=== PATIENT | female | born 1960 | race Caucasian/White ===

== ENCOUNTER 2024-02-25 15:32 | Emergency (ER) | payer BC, SELFPAY ==
[2024-02-25 15:47] VITALS: BP 135/94
[2024-02-25 16:09] LABS: % Basophils 0.8 % (0-2); % Eosinophils 1.3 % (0-6); % Immature Granulocytes 0.3 % (0-0.5); % Lymphocytes 35.3 % (20.5-51.1); % Monocytes 7.3 % (1.7-9.3); Absolute Basophils 0.1 10^3/uL (0-0.2); Absolute Eosinophils 0.1 10^3/uL (0-0.7); Absolute Lymphocytes 2.2 10^3/uL (1.2-3.4); Absolute Monocytes 0.5 10^3/uL (0.1-0.6); Absolute Neutrophils 3.4 10^3/uL (1.4-6.5); Hematocrit 42.3 % (37.0-47.0); Hemoglobin 14.2 g/dL (12.0-16.0); Mean Corp Hgb Conc. 33.6 g/dL (33.0-37.0); Mean Corpuscular Hgb 32.3 pg (27.0-31.0); Mean Corpuscular Volume 96.1 fL (81.0-99.0); Mean Platelet Volume 9.8 fL (7.4-10.4); Nucleated Red Blood Cells % 0 %; Platelet Count 448 10^3/uL (130-400); Red Cell Dist. Width 14.1 % (11.5-14.5); White Blood Cell Count 6.2 10^3/uL (4.8-10.8)
[2024-02-25 16:30] LABS: ALT (SGPT) 28 U/L (0-35); AST (SGOT) 28 U/L (14-36); Albumin 4.4 g/dl (3.5-5.0); Alkaline Phosphatase 92 U/L (38-126); Blood Urea Nitrogen 10 mg/dl (7-17); Calcium 9.7 mg/dl (8.4-10.2); Carbon Dioxide 23 mmol/L (22-30); Chloride 103 mmol/L (98-107); Glucose 99 mg/dl (70-99); Lipase 98 U/L (23-300); Potassium 4.5 mmol/L (3.5-5.1); Sodium 131 mmol/L (135-145); Total Bilirubin 0.4 mg/dl (0.2-1.3); eGFR > 60.00
[2024-02-25 16:35] LABS: Troponin I < 0.012 ng/ml
[2024-02-25] MEDS: BENTYL 20 MG PO (20:04)
--- NOTE | 2024-02-25 21:07 | ED.GENMED ---
History of Present Illness
General
Chief Complaint: Abdominal Pain
Source: patient
Exam Limitations: none
Time Seen by Provider: 02/25/24 19:29
Nursing documentation reviewed up to this point in time: agreed with
Travel History
Have you had any contact with someone who has COVID-19?: No
Do you have any symptoms of coronavirus? Fever > 100 degrees, chills, cough, shortness of breath, sore throat, loss of taste or smell, muscle aches, or headache?: No
History of Present Illness
History of Present Illness:
Patient to ED with multiple complaints. States she has not been feeling well for the past week. Report intermittent stomach ache, intermittent chest pain, intermittent neck and arm pains. States she had a fever for the first 2 days, none since.
Denies any vomiting. Reports occasional diarrhea. Denies SOB or cough. Brought self to ED for eval.
Past History
Past History
ED Past Medical History: CAD (normal cath, trop 0.2), Hypercholesterolemia, [place] and Other (Asthma, GERD, depression); Negative HTN or IDDM
ED Past Surgical History: Other
Social History
Tobacco: Non-smoker
Alcohol: None
Drug: None
Personal:
Living: with family
Employment: Employed
Family History
Family History: Negative Diabetes, Hypertension or CAD
Review of Systems
Review of Systems
Allergies reviewed?: Yes
All Other Systems: ROS reviewed and negative except as documented in HPI and ROS
Constitutional: Reports fever (first 2 days of illnewss)
Respiratory: Reports no symptoms
Cardiac: Reports no symptoms
ABD/GI: Reports abdominal pain (intermittent) and diarrhea (intermittent)
: Reports no symptoms
Musculoskeletal: Reports no symptoms
Skin: Reports no symptoms
Neurological: Reports no symptoms
Psychiatric: Reports no symptoms
Phy Exam
General Physical Exam
General Presentation: well appearing and no apparent distress
General age: appears stated age
General Skin: warm and dry
General Habitus: normal
General Mental: alert
Cardiovascular Exam
Cardiovascular Exam: regular rate/rhythm and no edema
Pulmonary Exam
Pulmonary Exam: lungs clear, no respiratory distress, no rales, chest non tender, no crackles, no rhonchi, no stridor, no wheezing and no cough
Gastrointestinal Exam
Gastrointestinal Exam: normal bowel sounds, non tender, soft, no organomegaly, no pulsatile mass, non distended and no cva tenderness
Musculoskeletal Exam
Musculoskeletal Exam: full ROM and neuro vasc intact
Skin Exam
Skin Exam: normal color, warm/dry and no rash
Psychiatric Exam
Psychiatric Exam: normal mood/affect
Course
Orders/Labs/Results
Orders:
Orders
02/25/24 15:51
EKG [Electrocardiogram (*1)] Urgent
Reason for Study: Abdominal Pain
EKG- Treatment ONCE
02/25/24 15:55
Complete Blood Count/With Diff Urgent
Comprehensive Metabolic Panel Urgent
Lipase Urgent
Troponin I Urgent
02/25/24 19:54
Dicyclomine [Bentyl] 20 mg PO NOW STA
Abnormal Lab Results
02/25/24
15:55
MCH 32.3 H pg
(27.0-31.0)
Plt Count 448 H 10^3/uL
(130-400)
Sodium 131 L mmol/L
(135-145)
02/25/24 15:55
02/25/24 15:55
Vital Signs
Initial and Last Documented VS:
Initial Vital Signs
Temp Pulse Resp BP Pulse Ox
98.4 F 82 16 135/94 98
02/25/24 15:47 02/25/24 15:47 02/25/24 15:47 02/25/24 15:47 02/25/24 15:47
Last Documented Vital Signs
Temp Pulse Resp BP Pulse Ox
98.4 F 82 16 135/94 98
02/25/24 15:47 02/25/24 15:47 02/25/24 15:47 02/25/24 15:47 02/25/24 15:47
*Pulse Oximetry
Patient hypoxic: no
*EKG
Interpretation: normal
Rate: normal
Rhythm: sinus
*Critical Care Note
Total Time (30-74mins, 75-104mins- exclusive of procedures): Not Applicable
ED Attending Note
-
Portions of this chart may have been created with voice recognition software.� Occasional wrong word or��sound alike� substitutions may have occurred due to the inherent limitations of voice recognition software.
Discharge Plan
Departure
Patient Disposition: Home (Routine Discharge)
Date of Disposition: 02/25/24
Time of Disposition: 19:56
Patient with high blood pressure during this ER visit?: No
Condition: Good
Covid-19: Not Applicable
Discharge Problem:
Abdominal pain
Instructions: Abdominal Pain
Prescriptions:
New
dicyclomine 20 mg tablet
20 mg PO BID Qty: 14 0RF
No Action
Veronica
180 mg PO DAILY
loratadine-pseudoephedrine [Claritin-D 24 Hour] 1 EACH tablet extended release 24 hr
10 mg PO PRN (Reason: allergies)
azelastine 137 MCG/SPRAY aerosol,spray
1 spray intranasal BID PRN (Reason: congestion)
clopidogrel 75 MG tablet
75 mg PO DAILY
famotidine 40 MG tablet
40 mg PO PRN PRN (Reason: gerd)
Patient Comments:
20 or 40 mg
promethazine 25 MG tablet
25 mg PO DAILY
pravastatin 20 MG tablet
20 mg PO DAILY
bupropion HCl [Wellbutrin XL] 150 MG tablet extended release 24 hr
150 mg PO BID
guaifenesin [Mucus Relief ER] 600 MG tablet extended release 12hr
600 mg PO DAILY
escitalopram oxalate 10 MG tablet
10 mg PO DAILY
oxymetazoline [Afrin Sinus (oxymetazoline)] 0.05 % spray,non-aerosol
0 sprays intranasal PRN PRN (Reason: hayfever)
mometasone [Nasonex] 17 GRAM spray,non-aerosol
1 spray intranasal BID PRN (Reason: hayfever)
levalbuterol tartrate 45 MCG HFA aerosol inhaler
1 puff inhalation R Q4HPRN PRN (Reason: sob)
Asmanex
PRN (Reason: wheezing)
hydroxyurea 500 MG capsule
500 mg PO BID
fluticasone propion-salmeterol [Advair Diskus] 1 DISK blister with device
1 puff inhalation PRN PRN (Reason: asthma)
aspirin 81 MG tablet,delayed release (DR/EC)
81 mg PO DAILY
pantoprazole 40 MG tablet,delayed release (DR/EC)
40 mg PO DAILY
Ipratropium [place]
2 inhalation BID
Activity Restrictions/Additional Instructions:
Follow up with your family doctor in 2-3 days.
Interventions
Interventions:
*Risk Screen - Suicide Last Done: 02/25/24 15:47
*General Assessment Last Done: 02/25/24 15:47
*Neglect/Abuse Screening Last Done: 02/25/24 15:47
ED- Fall Risk Assessment Last Done: 02/25/24 21:05
*ED COVID-19 Vaccine History Last Done: 02/25/24 15:47
*Nursing Disposition Last Done: 02/25/24 21:05
UI-Unpkht-Huaoipwscm Assessment Last Done: 02/25/24 19:05
Discharge Date and Time
Discharge Date/Time: 02/25/24 21:06
Print Language: PER[place]
== END 2024-02-25 21:06 | disposition home or self-care (01) ==
LOC: EMR 15:32
PROVIDERS: Emergency Medicine; EMERGENCY PHYSICIAN Emergency Medicine; FAMILY PHYSICIAN Family Medicine
DX: R10.9 Unspecified abdominal pain (principal)
CPT/HCPCS: 99284; 80053; 83690; 84484; 85025; 93005

== ENCOUNTER 2025-06-15 17:44 | Emergency (ER) | payer MEDICARE, BC, SELFPAY ==
[2025-06-15 17:51] VITALS: BP 156/82
[2025-06-15 18:19] LABS: Hematocrit 40.5 % (37.0-47.0); Hemoglobin 13.5 g/dL (12.0-16.0); Mean Corp Hgb Conc. 33.3 g/dL (33.0-37.0); Mean Corpuscular Volume 97.1 fL (81.0-99.0); Nucleated Red Blood Cells % 0 %; Platelet Count 398 10^3/uL (130-400); Red Cell Dist. Width 15.8 % (11.5-14.5)
[2025-06-15 18:33] LABS: ALT (SGPT) 33 U/L (0-35); AST (SGOT) 28 U/L (14-36); Albumin 4.6 g/dl (3.5-5.0); Alkaline Phosphatase 79 U/L (38-126); Blood Urea Nitrogen 17 mg/dl (7-17); Calcium 9.3 mg/dl (8.4-10.2); Carbon Dioxide 20 mmol/L (22-30); Chloride 106 mmol/L (98-107); Glucose 114 mg/dl (70-99); Potassium 4.5 mmol/L (3.5-5.1); Sodium 135 mmol/L (135-145); Total Protein 7.1 g/dl (6.3-8.2); eGFR > 60.00
[2025-06-15 18:45] LABS: Troponin I < 0.012 ng/ml
--- NOTE | 2025-06-15 22:07 | ED.GENMED ---
History of Present Illness
General
Chief Complaint: Chest Pain
Source: patient
Time Seen by Provider: 06/15/25 22:01
History of Present Illness
History of Present Illness:
65-year-old female presents to the emergency room complaining of chest pain and abdominal pain. Patient has been experiencing symptoms for the past 4 days. She states that she has discomfort in her chest and epigastrium. Sometimes radiates all
way up to her neck. No associated shortness of breath, diaphoresis, nausea or vomiting. Today she has had more epigastric pain rather than chest pain. No fever or chills. 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
with essential thrombocytosis. She is taking diarrhea for this with good control of her platelet count. No diarrhea or constipation.
Past History
Past History
ED Past Medical History: CAD (normal cath, trop 0.2), Hypercholesterolemia, [place] and Other (Asthma, GERD, depression); Negative HTN or IDDM
ED Past Surgical History: Other
Social History
Tobacco: Non-smoker
Alcohol: None
Drug: None
Personal:
Living: with family
Employment: Employed
Family History
Family History: Negative Diabetes, Hypertension or CAD
Phy Exam
Physical Exam
Physical Exam:
General: Awake, Alert, Oriented X3. No acute distress.
Vitals: unremarkable
Head: Atraumatic
Eyes: Pupils equal, EOMI
Throat: Airway intact, no exudates
Neck: Trachea midline
Lungs: Clear and equal b/l
Heart: Regular rate, no murmurs
Abd: Soft, tender palpation epigastrium right upper quadrant, No pulsatile mass
Neuro: Nonfocal
Skin: Warm, dry, no rash
Extremities: pulses equal b/l, no edema
Scores
Heart Score for Chest Pain Patients
STEMI patient?: No
History: Slightly or Non-Suspicious
ECG: Normal
Age: >/= 65 years
Risk Factors: 1 or 2 Risk Factors
Troponin: </= Normal Limit
Heart Score for Chest Pain Patients: 3
Heart Score Risk: 2.5% MACE over next 6 weeks
Course
Orders/Labs/Results
Orders:
Orders
06/15/25 17:45
Electrocardiogram (*1) Urgent
Reason for Study: Chest Pain
EKG- Treatment ONCE
06/15/25 18:00
Complete Blood Count/With Diff Urgent
Comprehensive Metabolic Panel Urgent
Troponin I Urgent
06/15/25 22:06
Ketorolac [Toradol] 15 mg IV NOW STA
US Abdomen Complete/Upper Urgent
Comment:
Reason For Exam: ruq/epigastric pain
06/15/25 22:07
CR Chest - 2 Views Urgent
Comment:
Reason For Exam: chest/abd pain
06/15/25 22:26
Troponin I Urgent
Abnormal Lab Results
06/15/25
18:00
RBC 4.17 L 10^6/uL
(4.20-5.40)
MCH 32.4 H pg
(27.0-31.0)
RDW 15.8 H %
(11.5-14.5)
Carbon Dioxide 20 L mmol/L
(22-30)
Glucose 114 H mg/dl
(70-99)
06/15/25 18:00
06/15/25 18:00
Vital Signs
Initial and Last Documented VS:
Initial Vital Signs
Temp Pulse Resp BP Pulse Ox
98.7 F 97 18 156/82 96
06/15/25 17:51 06/15/25 17:51 06/15/25 17:51 06/15/25 17:51 06/15/25 17:51
Last Documented Vital Signs
Temp Pulse Resp BP Pulse Ox
98.7 F 78 13 156/82 97
06/15/25 17:51 06/15/25 23:30 06/15/25 23:30 06/15/25 17:51 06/15/25 23:30
MDM/Problems Addressed
Differential Diagnosis Includes:
Acute coronary syndrome, GERD,, cholecystitis
MDM/Problems Addressed:
Patient presents with abdominal pain and chest pain. Overall seems like her symptoms are primarily oriented to her upper abdomen. She did have 2 negative troponins and an EKG which shows no acute ischemic changes. Ultrasound also performed which
shows no acute abnormality. Ultimately suspect gastritis and GERD. Recommend adding Pepcid as the patient already takes a proton pump inhibitor. Stable for discharge home.
*Radiology
Radiology exam reviewed: radiology read reviewed
*Pulse Oximetry
SaO2: 96
Oxygen Mode of Delivery: Room air
Patient hypoxic: no
*EKG
Interpreted by ED Provider?: Yes
Interpretation: normal
Heart Rate: 91
Rate: normal
Rhythm: sinus
[place]: normal axis
Interval: normal interval
QRS Pattern: normal QRS
Ischemia: non-specific ST changes
*Cutter V Groove Interpretation
Rate: normal
Interpretation: normal
Rhythm: sinus
*Critical Care Note
Total Time (30-74mins, 75-104mins- exclusive of procedures): Not Applicable
ED Attending Note
-
Portions of this chart may have been created with voice recognition software.� Occasional wrong word or��sound alike� substitutions may have occurred due to the inherent limitations of voice recognition software.
Discharge Plan
Departure
Patient Disposition: Home (Routine Discharge)
Date of Disposition: 06/15/25
Time of Disposition: 23:32
Patient with high blood pressure during this ER visit?: Yes
Condition: Good
Discharge Problem:
Chest Pain, Non-specific
Instructions: Acid Reflux and GERD in Adults (DC), Chest Pain PCP Follow Up, BLOOD PRESSURE
Prescriptions:
No Action
Veronica
180 mg PO DAILY
loratadine-pseudoephedrine [Claritin-D 24 Hour] 1 EACH tablet extended release 24 hr
10 mg PO PRN (Reason: allergies)
azelastine 137 MCG/SPRAY aerosol,spray
1 spray intranasal BID PRN (Reason: congestion)
clopidogrel 75 MG tablet
75 mg PO DAILY
famotidine 40 MG tablet
40 mg PO PRN PRN (Reason: gerd)
Patient Comments:
20 or 40 mg
promethazine 25 MG tablet
25 mg PO DAILY
pravastatin 20 MG tablet
20 mg PO DAILY
bupropion HCl [Wellbutrin XL] 150 MG tablet extended release 24 hr
150 mg PO BID
guaifenesin [Mucus Relief ER] 600 MG tablet extended release 12hr
600 mg PO DAILY
escitalopram oxalate 10 MG tablet
10 mg PO DAILY
oxymetazoline [Afrin Sinus (oxymetazoline)] 0.05 % spray,non-aerosol
0 sprays intranasal PRN PRN (Reason: hayfever)
mometasone [Nasonex] 17 GRAM spray,non-aerosol
1 spray intranasal BID PRN (Reason: hayfever)
levalbuterol tartrate 45 MCG HFA aerosol inhaler
1 puff inhalation R Q4HPRN PRN (Reason: sob)
Asmanex
PRN (Reason: wheezing)
hydroxyurea 500 MG capsule
500 mg PO BID
fluticasone propion-salmeterol [Advair Diskus] 1 DISK blister with device
1 puff inhalation PRN PRN (Reason: asthma)
aspirin 81 MG tablet,delayed release (DR/EC)
81 mg PO DAILY
pantoprazole 40 MG tablet,delayed release (DR/EC)
40 mg PO DAILY
Ipratropium [place]
2 inhalation BID
dicyclomine 20 mg tablet
20 mg PO BID Qty: 14 0RF
Referrals:
UNKNOWN - PT DOES,NOT KNOW [Family Provider]
Interventions
Interventions:
*Risk Screen - Suicide Last Done: 06/15/25 17:53
*General Assessment Last Done: 06/15/25 17:53
*Neglect/Abuse Screening Last Done: 06/15/25 17:53
*ED- Fall Risk Assessment Last Done: 06/15/25 22:13
*ED COVID-19 Vaccine History Last Done: 06/15/25 17:53
*Nursing Disposition Last Done: 06/15/25 23:49
ED- Cardiac Assessment Last Done: 06/15/25 22:13
Discharge Date and Time
Discharge Date/Time: 06/15/25 23:55
Print Language: [place]
[2025-06-15 22:13] VITALS: BMI 25.5
[2025-06-15 22:59] LABS: Troponin I < 0.012 ng/ml
[2025-06-15] MEDS: TORADOL 15 MG IV (23:05)
== END 2025-06-15 23:55 | disposition home or self-care (01) ==
LOC: EMR 17:44
PROVIDERS: Student in an Organized Health Care Education/Training Program; EMERGENCY PHYSICIAN Emergency Medicine
DX: R07.9 Chest pain, unspecified (principal); R10.9 Unspecified abdominal pain; E78.00 Pure hypercholesterolemia, unspecified; I25.2 Old myocardial infarction; I25.10 Atherosclerotic heart disease of native coronary artery without angina pectoris
CPT/HCPCS: 99285; 96374; 71046; 76700; 80053; 84484; 85025; 93005